=== PATIENT | female | born 1990 | race Caucasian/White ===

== ENCOUNTER 2020-10-22 14:51 | Emergency (ER) | payer MEDICAID, SELFPAY ==
[2020-10-22 15:14] VITALS: BP 113/47; PULSE 80; RESP 17; TEMP 36.8; O2SAT 100; BMI 26.9
--- NOTE | 2020-10-22 15:44 | ED.EXTPRO ---
HPI - Extremity Problem General Chief complaint: Extremity Injury, Upper Stated complaint: R RING FINGER NAIL INJ Time Seen by Provider: 10/22/20 15:44 History of Present Illness HPI Narrative: Patient complains of right ring finger nail bent back, she has an acrylic nail and banged it against something and it bent the nail back partially avulsing the nail, no numbness no weakness no tingling Related Data Allergies Allergy/AdvReac Type Severity Reaction Status Date / Time acetaminophen [From VICODIN] Allergy Mild NAUSEA Verified 10/22/20 17:27 hydrocodone [From VICODIN] Allergy Unknown NAUSEA/BODY Verified 10/22/20 17:27 SWELLING From VICODIN Allergy Mild NAUSEA Uncoded 03/24/20 15:59 Review of Systems Review of Systems: Positive for right fingernail avulsion No fever no chills no numbness no weakness no tingling no other injury PMFSH Past Medical History Source: nursing notes reviewed Medical History (Updated 10/22/20 @ 17:47 by BEV Hernadez) No known health problems Social History Social History Advance Directives: No Advance Directives Information Provided: No Physical Exam Vital Signs: Vital Signs: Last Vital Signs Temp 98.3 F 10/22/20 15:14 Pulse 80 10/22/20 15:14 Resp 17 10/22/20 15:14 BP 113/47 L 10/22/20 15:14 Pulse Ox 100 10/22/20 15:14 Body Mass Index 26.9 Patient is A&O x3 comfortable relaxed cooperative Neck is supple Respiratory no distress Right 4th finger has the fingernail loose at the nail base, there is no swelling or redness no warmth, neurovascular is intact Skin no rash Neuro no focal motor or sensory deficits Course Course Course Narrative: Right 4th finger was numbed with a digital block using 8 cc of 1% lidocaine The nail was lifted down to the base and trimmed below the acrylic nail with the nail plate remaining No bleeding or problem and a Band-Aid was applied Discharge Plan Discharge Clinical Impression: Avulsion of fingernail Qualifiers: Encounter type: initial encounter Qualified Code(s): S61.309A - Unspecified open wound of unspecified finger with damage to nail, initial encounter Patient Disposition: Home, Self-Care Additional Instructions: I removed the section of loose fingernail It should grow back over weeks to a couple of months No sign of infection Cover with Band-Aid and it should not create many problems Return any concerns
[2020-10-22] MEDS: Lidocaine HCl 1 % MPF 5 ML VIAL SUBCUT ×3 (16:37→17:27)
--- NOTE | 2020-10-22 17:29 | PC.NURSE ---
PT EVALED BY BEV MURPHY. DIGITAL BLOCK DONE. PT REPORTS PAIN STILL. 2ND LIDOCAINE SCANNED. PT HAS PARTIALLY TORN OFF ACRYLIC NAIL ON RIGHT 4TH FINGER. PT WAITING FOR 2ND DIGITAL BLOCK.
== END 2020-10-22 17:52 | disposition home or self-care (01) ==
PROVIDERS: Emergency Provider Emergency Medicine; PCP Internal Medicine Geriatric Medicine
DX: S61.304A Unspecified open wound of right ring finger with damage to nail, initial encounter (principal); S69.91XA Unspecified injury of right wrist, hand and finger(s), initial encounter; M79.641 Pain in right hand; Y33.XXXA Other specified events, undetermined intent, initial encounter; Y93.9 Activity, unspecified; Y92.9 Unspecified place or not applicable; Y99.9 Unspecified external cause status
CPT/HCPCS: 11750; 11765; 99283; 99284

== ENCOUNTER 2021-07-16 13:21 | Emergency (ER) | payer MEDICAID, SELFPAY ==
--- NOTE | ~2021-07-16 | XR_ITS ---
EXAMINATION: LUMBAR SPINE, SACRUM AND COCCYX, AP PELVIS AND RIGHT HIP AND RIGHT FEMUR CLINICAL INFORMATION: Fall, pain COMPARISON: None TECHNIQUE: 2 views lumbar spine, 3 views sacrum, one view AP pelvis and right hip and 2 views right femur. FINDINGS: LUMBAR SPINE: There is normal lumbar lordosis. The vertebral heights, alignment and disc heights are normal. No visible acute fracture, dislocation or subluxation seen. SACRUM AND/OR COCCYX: There is no visible fracture or dislocation involving sacrum or the coccyx. The SI joints are symmetrical and normal. The soft tissues are normal. AP PELVIS AND RIGHT HIP: There is normal symmetry of bilateral hip joints and SI joints. There is no visible acute fracture or dislocation involving the right hip. The soft tissues are normal. Right femur: There is no visible fracture or bony abnormality. The soft tissues are normal. XR/XR sacrum coccyx min 2V IMPRESSION: Unremarkable lumbar, sacrum and coccyx spine exam. Unremarkable AP pelvis and right hip. Unremarkable right femur exam..
--- NOTE | ~2021-07-16 | XR_ITS ---
EXAMINATION: LUMBAR SPINE, SACRUM AND COCCYX, AP PELVIS AND RIGHT HIP AND RIGHT FEMUR CLINICAL INFORMATION: Fall, pain COMPARISON: None TECHNIQUE: 2 views lumbar spine, 3 views sacrum, one view AP pelvis and right hip and 2 views right femur. FINDINGS: LUMBAR SPINE: There is normal lumbar lordosis. The vertebral heights, alignment and disc heights are normal. No visible acute fracture, dislocation or subluxation seen. SACRUM AND/OR COCCYX: There is no visible fracture or dislocation involving sacrum or the coccyx. The SI joints are symmetrical and normal. The soft tissues are normal. AP PELVIS AND RIGHT HIP: There is normal symmetry of bilateral hip joints and SI joints. There is no visible acute fracture or dislocation involving the right hip. The soft tissues are normal. Right femur: There is no visible fracture or bony abnormality. The soft tissues are normal. XR/XR femur RT 2V IMPRESSION: Unremarkable lumbar, sacrum and coccyx spine exam. Unremarkable AP pelvis and right hip. Unremarkable right femur exam..
--- NOTE | ~2021-07-16 | XR_ITS ---
EXAMINATION: LUMBAR SPINE, SACRUM AND COCCYX, AP PELVIS AND RIGHT HIP AND RIGHT FEMUR CLINICAL INFORMATION: Fall, pain COMPARISON: None TECHNIQUE: 2 views lumbar spine, 3 views sacrum, one view AP pelvis and right hip and 2 views right femur. FINDINGS: LUMBAR SPINE: There is normal lumbar lordosis. The vertebral heights, alignment and disc heights are normal. No visible acute fracture, dislocation or subluxation seen. SACRUM AND/OR COCCYX: There is no visible fracture or dislocation involving sacrum or the coccyx. The SI joints are symmetrical and normal. The soft tissues are normal. AP PELVIS AND RIGHT HIP: There is normal symmetry of bilateral hip joints and SI joints. There is no visible acute fracture or dislocation involving the right hip. The soft tissues are normal. Right femur: There is no visible fracture or bony abnormality. The soft tissues are normal. XR/XR hip RT w PEL1V IMPRESSION: Unremarkable lumbar, sacrum and coccyx spine exam. Unremarkable AP pelvis and right hip. Unremarkable right femur exam..
--- NOTE | ~2021-07-16 | XR_ITS ---
EXAMINATION: LUMBAR SPINE, SACRUM AND COCCYX, AP PELVIS AND RIGHT HIP AND RIGHT FEMUR CLINICAL INFORMATION: Fall, pain COMPARISON: None TECHNIQUE: 2 views lumbar spine, 3 views sacrum, one view AP pelvis and right hip and 2 views right femur. FINDINGS: LUMBAR SPINE: There is normal lumbar lordosis. The vertebral heights, alignment and disc heights are normal. No visible acute fracture, dislocation or subluxation seen. SACRUM AND/OR COCCYX: There is no visible fracture or dislocation involving sacrum or the coccyx. The SI joints are symmetrical and normal. The soft tissues are normal. AP PELVIS AND RIGHT HIP: There is normal symmetry of bilateral hip joints and SI joints. There is no visible acute fracture or dislocation involving the right hip. The soft tissues are normal. Right femur: There is no visible fracture or bony abnormality. The soft tissues are normal. XR/XR lumbar spine 2-3V IMPRESSION: Unremarkable lumbar, sacrum and coccyx spine exam. Unremarkable AP pelvis and right hip. Unremarkable right femur exam..
[2021-07-16 13:29] VITALS: BP 105/45; BP 138/86; PULSE 103; PULSE 80; RESP 20; TEMP 35.7; O2SAT 100; O2SAT 99; BMI 26.2
--- NOTE | 2021-07-16 15:01 | ED.FALL ---
HPI - Fall General Chief Complaint: Fall Stated Complaint: fall Time Seen by Provider: 07/16/21 14:23 Source: patient Mode of arrival: ambulatory Limitations: no limitations History of Present Illness HPI Narrative: 30-year-old female here with reports of slip and fall on stairs just prior to arrival. Patient tells me that she fell down approximately 4 stairs landing on her buttocks and right upper leg. She did hit her head but there was no loss of consciousness. She denies any anticoagulation use. No headache, nausea, vomiting, vision changes, neck pain. Patient is here complaining of low back pain and right hip and leg pain. Related Data Previous Rx's Medication Instructions Recorded cyclobenzaprine 10 mg tablet 10 mg PO TID PRN #10 tab 07/16/21 ibuprofen 600 mg tablet 600 mg PO Q8H PRN #20 tab 07/16/21 Allergies Allergy/AdvReac Type Severity Reaction Status Date / Time acetaminophen [From VICODIN] Allergy Mild NAUSEA Verified 10/22/20 17:27 hydrocodone [From VICODIN] Allergy Unknown NAUSEA/BODY Verified 10/22/20 17:27 SWELLING From VICODIN Allergy Mild NAUSEA Uncoded 03/24/20 15:59 Review of Systems Review of Systems: Yes all other systems are reviewed and are negative Constitutional: Constitutional: Reports no additional constitutional complaints, Denies body ache(s), Denies chills, Denies fever(s), Denies headache(s) and Denies weakness Eyes: Eyes: Reports no additional eye complaints and Denies change in vision ENT: Reports system reviewed and no additional complaints, except as documented, Denies dizziness, Denies headache(s), Denies nasal congestion, Denies nasal discharge and Denies neck pain Cardiovascular: Cardiovascular: Reports no additional cardiovascular complaints, Denies chest pain, Denies leg edema and Denies dyspnea Respiratory: Respiratory: Reports no additional respiratory complaints, Denies cough and Denies dyspnea Gastrointestinal: Gastrointestinal: Reports no additional gastrointestinal complaints, Denies abdominal pain, Denies diarrhea, Denies nausea and Denies vomiting Genitourinary: Genitourinary: Reports no additional female genitourinary complaints and Denies urinary incontinence Musculoskeletal: Musculoskeletal: Reports no additional musculoskeletal complaints, Reports back pain, Reports arthralgias, Denies joint swelling, Denies neck pain, Denies numbness and Denies tingling Integumentary/Breasts: Skin/Breast: Reports system reviewed and no additional complaints, except as docu and Denies rash Neurologic: Reports system reviewed and no additional complaints, except as documented, Denies Abnormal speech present, Denies dizziness, Denies headache(s), Denies numbness, Denies tingling and Denies weakness PMFSH Past Medical History Attestation statement: The following information was validated with the patient. Source: old records reviewed and nursing notes reviewed Medical History No known health problems Social History Social History Advance Directives: No Advance Directives Information Provided: Yes Physical Exam Vital Signs: Vital Signs: Last Vital Signs Temp 96.2 F L 07/16/21 13:29 Pulse 80 07/16/21 13:29 Resp 20 07/16/21 13:29 BP 105/45 L 07/16/21 13:29 Pulse Ox 99 07/16/21 13:29 BMI result Body Mass Index 26.2 Const: General: cooperative, healthy appearing, comfortable and no acute distress Orientation/consciousness: patient oriented x3 Limitations: no limitations HENMT: Head: Yes normal to inspection Ears: hearing grossly normal bilaterally General nose exam: Normal external nose present Face and sinus: Yes normal facial exam Mouth: Normal oral and palatal mucosa present Throat: Yes posterior oropharynx normal Eyes: General: appearance normal, both eyes and all related structures Pupils: Equal, round and reactive pupils present Neck: Neck: Yes normal visual inspection Chest: Chest palpation & inspection: normal inspection of the chest Resp: Effort & Inspection: normal respiratory effort Auscultation: clear to auscultation bilaterally Cardio: Rate: regular rate Rhythm: regular rhythm Peripheral pulses: Peripheral pulses 2+ throughout GI: Inspection: Yes normal to inspection Palpation (GI): Soft to palpation and nontender Auscultation: normal bowel sounds Back/Spine/Pelvis: Other: There is tenderness to the lumbar spine and coccyx with no step-offs, deformities or ecchymosis. Thoracic/Lumbar Spine: thoracic and lumbar spine normal to inspection Skin: General skin exam: no rashes or lesions noted Neuro: General: patient oriented x3, no focal motor deficits and normal sensation to monofilament Cranial nerves: Yes CN's II-XII intact bilaterally, Yes Equal, round and reactive pupils present, Yes Bilaterally intact EOM present, Yes Normal facial strength present and Yes Midline tongue present Cognition (Neuro): normal cognition Speech: No Abnormal speech present Gait exam (Neuro): Normal gait present Motor exam (neuro): 5/5 motor strength present throughout Sensory Exam: Normal double simultaneous stimulation for sensation Extrem: Other: Tenderness over the right lateral hip and right outer thigh with no ecchymosis, deformity or swelling noted. Full range of motion of affected joint. Neurovascularly intact distally General: Yes normal to inspection Course Course Course Narrative: 30-year-old female here with reports of low back pain, right hip and leg pain after a slip and fall which occurred just prior to arrival. There was a head strike no loss of conscious. No neurological complaints or deficits. Will check x-rays 1530-x-ray show no bony abnormality. Likely contusion. Reviewed worrisome signs and symptoms of when to return to the emergency department. Comfortable discharge home. MDM - Fall Medical Records Attestation: I reviewed the patient's medical records. Lab Data Attestation: I reviewed the patient's lab results. Imaging Data lumbar/sacrum/hip/pelvis: Attestation: I personally reviewed and interpreted this imaging study as follows: Radiologist's impression: FINDINGS: LUMBAR SPINE: There is normal lumbar lordosis. The vertebral heights, alignment and disc heights are normal. No visible acute fracture, dislocation or subluxation seen. SACRUM AND/OR COCCYX: There is no visible fracture or dislocation involving sacrum or the coccyx. The SI joints are symmetrical and normal. The soft tissues are normal. AP PELVIS AND RIGHT HIP: There is normal symmetry of bilateral hip joints and SI joints. There is no visible acute fracture or dislocation involving the right hip. The soft tissues are normal. Right femur: There is no visible fracture or bony abnormality. The soft tissues are normal. XR/XR femur RT 2V IMPRESSION: Unremarkable lumbar, sacrum and coccyx spine exam. ? Unremarkable AP pelvis and right hip. ? Unremarkable right femur exam..? Discharge Plan Discharge Clinical Impression: Lumbar contusion, Contusion of leg, right, Contusion of hip, right Patient Disposition: Home, Self-Care Instructions: Back Pain (ED), Hip Contusion (ED) Additional Instructions: Heat or ice Gentle stretching Motrin or Tylenol for pain or fever Prescriptions: New cyclobenzaprine 10 mg tablet 10 mg PO TID PRN (Reason: muscle spasm) Qty: 10 RF: 0 ibuprofen 600 mg tablet 600 mg PO Q8H PRN (Reason: pain) Qty: 20 RF: 0 Referrals: Physician,Unknown J [Primary Care Provider] - 2 days Interventions: ED Discharge Assessment Last Done: 07/16/21 15:56 Discharge Date/Time: 07/16/21 15:57
== END 2021-07-16 15:57 | disposition home or self-care (01) ==
PROVIDERS: Emergency Provider Internal Medicine
DX: S30.0XXA Contusion of lower back and pelvis, initial encounter (principal); S80.11XA Contusion of right lower leg, initial encounter; S70.01XA Contusion of right hip, initial encounter; M79.604 Pain in right leg; W10.9XXA Fall (on) (from) unspecified stairs and steps, initial encounter; Y93.9 Activity, unspecified; Y92.9 Unspecified place or not applicable; Y99.9 Unspecified external cause status; Z79.899 Other long term (current) drug therapy
CPT/HCPCS: 72100; 72220; 73502; 73552; 99283

== ENCOUNTER 2024-03-22 13:37 | Emergency (ER) | payer MEDICAID, SELFPAY ==
--- NOTE | ~2024-03-22 | CT_ITS ---
EXAMINATION: CT ABDOMEN AND PELVIS WITHOUT CONTRAST CLINICAL INFORMATION: Severe left flank pain COMPARISON: CT abdomen 04/29/2015 TECHNIQUE: Multidetector volumetric imaging was performed from the superior aspect of the liver through the pubic symphysis. Sagittal and coronal reformatted images were obtained on the technologist's workstation. This CT examination was performed using dose optimization techniques as appropriate, variously including the following: *Automated exposure control *Adjustment of mA and/or kV according to patient size (this includes techniques or standardized protocols for targeted exams where dose is matched to indication/reason for exam; i.e. extremities or head) *Use of iterative reconstruction technique DLP: 542 mGy-cm FINDINGS: LUNG BASES: The visualized lung bases are unremarkable. LIVER, GALLBLADDER, AND BILIARY TREE: Low-attenuation of the liver with respect to the spleen suggestive of hepatic steatosis.. No focal hepatic lesion or biliary ductal dilatation is present. The gallbladder is unremarkable with no evidence of radiopaque gallstones, gallbladder wall thickening, or obvious pericholecystic inflammatory changes. PANCREAS: Unremarkable. SPLEEN: Unremarkable. ADRENAL GLANDS: Unremarkable. KIDNEYS AND URETERS: Mild left hydroureteronephrosis, with a 3 mm calculus in the distal ureter. Multiple nonobstructing left renal calculi. Small right renal superior pole nonobstructing calculus. No right hydroureteronephrosis. BLADDER: Unremarkable. GASTROINTESTINAL TRACT: The small and large bowel are unremarkable. The appendix is unremarkable. Stomach and duodenum appear within normal limits. No free fluid. No free air. ABDOMINAL WALL: No significant hernia is appreciated. LYMPH NODES: No pathologically enlarged lymph nodes are seen. VASCULAR: Normal caliber aorta. PELVIC VISCERA: Unremarkable. OSSEOUS STRUCTURES: No acute or suspicious osseous abnormality. CT/CT abdomen pelvis wo IV con IMPRESSION: 1. Mild left hydroureteronephrosis, with a 3 mm calculus in the distal left ureter. Nonobstructing bilateral renal calculi are otherwise seen. 2. Hepatic steatosis. Fleischner guidelines were followed. Electronically signed by: Shai Lopez MD 03/22/2024 03:40 PM EDT
[2024-03-22 13:48] VITALS: BP 136/90; PULSE 64; RESP 20; TEMP 36.8; O2SAT 99; BMI 29.8
--- NOTE | 2024-03-22 14:02 | PC.NURSE ---
patient arrives via EMS from home with cc of left flank pain radiating to the front that started about 45min [employer], patient visibly uncomfortable upon exam, endorsing 10/10 pain that comes in waves, states she is having difficulty urinating but denies burning, was able to provide urine sample for this RN. patient denies any fevers at home but states the pain is so bad that she has been having nausea, provided with emesis bag. patient VSS at this time, PIV placed in RAC by this RN, blood work and urine sent to lab. abdomen soft and tender to palpation to left side, patient also endorsing 10/10 pain to palpation to left lower back. provided patient with heating pad, tearful upon assessment. awaiting provider radhaal
[2024-03-22 14:03] LABS: MANUAL DIFF FLAG NO
[2024-03-22 14:04] LABS: Basophils Percent Auto 0.5 % (0-2); Eosinophils Absolute Auto 0.2 X10*3/uL (0.0-0.4); Eosinophils Percent Auto 2.9 % (0-4); Hematocrit 40.9 % (37.0-47.0); Hemoglobin 14.2 g/dl (12.0-16.0); Imm Gran Abs Auto 0.03 X10*3/uL (0.00-0.03); Imm Gran Pct Auto 0.4 % (0.0-0.4); Lymphocytes Absolute Auto 2.4 X10*3/uL (1.2-4.9); Lymphocytes Percent Auto 28.5 % (20-40); Mean Corpuscular HGB Conc 34.7 g/dl (31.0-35.0); Mean Corpuscular Hemoglobin 31.6 pg (27.0-33.0); Mean Corpuscular Volume 91.1 fL (80.0-98.0); Mean Platelet Volume 10.5 fL (9.4-12.3); Monocytes Absolute Auto 0.5 X10*3/uL (0.1-1.2); Monocytes Percent Auto 6.4 % (2-11); Neutrophils Absolute Auto 5.2 x10*3/uL (2.0-8.3); Neutrophils Percent Auto 61.3 % (45-73); Platelet Count 245 X10*3/uL (160-400); Red Blood Count 4.49 X10*6/uL (4.20-5.50); Red Cell Distribution Width 13.9 % (11.0-16.0); White Blood Count 8.4 X10*3/uL (4.8-10.8)
[2024-03-22 14:04] LABS: Appearance Urine Clear; Color Urine Yellow; Glucose Urine UA Negative (Negative); Leukocyte Esterase Urine Negative (Negative); Nitrite Urine Negative (Negative); PH 5.5 (5.0-9.0); Specific Gravity - Urine 1.015 (1.005-1.025); UMIC TRIGGER UACC YES; Urine Blood Small (1+) (Negative); Urine Ketones Negative (Negative); Urine Protein Negative (Neg-Trace)
--- NOTE | 2024-03-22 14:09 | ED.ABDPAIN ---
HPI - Abdominal Pain General Chief Complaint: Abdominal Pain Stated Complaint: BILATERAL FLANK PAIN Time Seen by Provider: 03/22/24 14:08 Source: patient and EMS Mode of arrival: EMS Limitations: no limitations History of Present Illness ED Provider: Ethan Marie PA-C HPI narrative: 33-year-old female presents the ER for evaluation of acute onset severe left flank pain and difficulty urinating that started this morning. Patient states she went to bed last night in her usual state of health. This morning she woke up and had 2 episodes of diarrhea, did not think much about it and then developed the severe pain shortly after. She reports sensation of having to urinate but unable to do so. She reports 10/10 pain in the left flank that was worse than childbirth. She called 911 and waited outside for the ambulance. She denies any fevers or chills. No vaginal bleeding or discharge, she denies chance of . She denies chest pain or shortness of breath MD elicited complaint: flank pain Pertinent past history: none Onset (ago): hour(s) Pain Consistency: constant Location: L flank Severity: severe Pain scale (0-10): 10 Quality: stabbing Radiation: LLQ Migration to: no migration Exacerbating factors: nothing Relieving factors: nothing Associated symptoms: nausea and diarrhea Related Data Previous Rx's ?Medication ?Instructions ?Recorded cyclobenzaprine 10 mg tablet 10 mg PO TID PRN muscle spasm #10 07/16/21 tabs ibuprofen 600 mg tablet 600 mg PO Q8H PRN pain #20 tabs 07/16/21 naproxen 500 mg tablet 500 mg PO BID PRN pain #20 tabs 03/22/24 ondansetron 4 mg disintegrating 4 mg PO Q8H PRN nausea and 03/22/24 tablet vomiting #7 tabs oxycodone 5 mg tablet 5 mg PO Q8H PRN severe pain (scale 03/22/24 score 7-10) #7 tabs tamsulosin 0.4 mg capsule (Flomax) 0.4 mg PO DAILY #14 caps 03/22/24 Allergies Allergy/AdvReac Type Severity Reaction Status Date / Time acetaminophen [From VICODIN] Allergy Mild NAUSEA Verified 03/22/24 13:49 hydrocodone [From VICODIN] Allergy Unknown NAUSEA/BODY Verified 03/22/24 13:49 SWELLING From VICODIN Allergy Mild NAUSEA Uncoded 03/22/24 13:49 Review of Systems Review of Systems Yes all other systems are reviewed and are negative [facility] Past Medical History Medical History No known health problems Social History Social History Smoked in Last 30 Days: No Use of substances other than those prescribed or required for medical reasons: No Advance Directives: No Advance Directives Information Provided: No Do you have a plan to hurt others: No Plan Patient : No Physical Exam ED Vital Signs: Vital Signs - 24 hr 03/22/24 13:48 03/22/24 14:18 Temperature 98.2 F Pulse Rate 64 57 Respiratory Rate 20 18 Blood Pressure 136/90 H 111/47 L Pulse Oximetry 99 100 Oxygen Delivery Method Room Air Room Air BMI result Body Mass Index 29.8 Appearance: Alert. Oriented X3. In severe pain, restless and uncomfortable HEENT: normal external inspection Neck: Normal inspection. Neck supple. CVS: Normal heart rate and rhythm. Pulses normal. Respiratory: No respiratory distress. Breath sounds normal. Abdomen: Soft left lower quadrant tenderness, left-sided CVA tenderness. +BS x4 Skin: Skin warm and dry. Normal skin color. Normal skin turgor. No rashes. Extremities: No lower extremity edema. No joint swelling. Neuro/psych: Oriented X 3. No motor deficit. No sensory deficit. CN II-XII intact. Normal speech and cognition. Medical Decision Making Medical Decision Making MDM Narrative: 33-year-old otherwise healthy female presents to the ER for evaluation of acute onset of left flank pain after having 2 episodes of diarrhea today. She also reports difficulty urinating, denies any blood in her urine. No fevers or chills. On arrival to the ER she is extremely uncomfortable, writhing in pain. High clinical suspicion for kidney stone. No history of the same. IV was established and she was given IV morphine and IV Toradol long IV fluids. Her urinalysis has a small amount of blood, no evidence of infection. Her renal function is normal. CT scan of her abdomen was performed showing a distal 3mm stone. pain much improved after IV morphine and Toradol. Shortly after pain started to ?creep back? so she was given oral medications. This further improved her pain. She was re-evaluated once again and felt much better and would like to be discharged home. patient counseled on dx and tx along with return precautions. Patient is stable for discharge home with pain medications and symptomatic care. Encourage Urology follow-up. Stable for DC home Differential Diagnosis Differential Diagnoses: The differential diagnosis associated with the presentation includes Kidney stone, pyelonephritis, UTI, diverticulitis, low suspicion for splenic injury Admission/Observation Consideration of admission/observation: Escalation of care including admission/observation considered Improved with treatment Lab Data MDM Lab Attestation statement: I reviewed the patient's lab results. No leukocytosis, mild hyperglycemia, no anion gap, no anemia, normal renal function 03/22/24 13:58 03/22/24 13:58 Labs: Lab Results 03/22/24 03/22/24 Range/Units 13:54 13:58 WBC 8.4 (4.8-10.8) X10*3/uL RBC 4.49 (4.20-5.50) X10*6/uL Hgb 14.2 (12.0-16.0) g/dl Hct 40.9 (37.0-47.0) % MCV 91.1 (80.0-98.0) fL MCH 31.6 (27.0-33.0) pg MCHC 34.7 (31.0-35.0) g/dl RDW 13.9 (11.0-16.0) % Plt Count 245 (160-400) X10*3/uL MPV 10.5 (9.4-12.3) fL Immature Gran % (Auto) 0.4 (0.0-0.4) % Neut % (Auto) 61.3 (45-73) % Lymph % (Auto) 28.5 (20-40) % [place] % (Auto) 6.4 (2-11) % Eos % (Auto) 2.9 (0-4) % Baso % (Auto) 0.5 (0-2) % Lymph # (Auto) 2.4 (1.2-4.9) X10*3/uL [place] # (Auto) 0.5 (0.1-1.2) X10*3/uL Eos # (Auto) 0.2 (0.0-0.4) X10*3/uL Baso # (Auto) 0.0 (0.0-0.2) X10*3/uL Abs Immat Gran (auto) 0.03 (0.00-0.03) X10*3/uL Absolute Neuts (auto) 5.2 (2.0-8.3) x10*3/uL Absolute Nucleated RBC 0.000 (0.0-0.012) X10*3/uL Nucleated RBC % (auto) 0.0 (0.0-0.2) /100WBC Sodium 139 (135-145) mmol/L Potassium 3.5 (3.3-5.1) mmol/L Chloride 109 H (96-108) mmol/L Carbon Dioxide 18 L (22-29) mmol/L Anion Gap 16 (12-20) BUN 9 (9-16) mg/dL Creatinine 0.85 (0.5-1.4) mg/dL Estim Creat Clear Calc 88.5 Estimated GFR > 60 Random Glucose 125 H (60-115) mg/dL Calcium 9.6 (8.4-10.2) mg/dL Total Bilirubin 0.3 (0.0-1.0) mg/dL AST 25 (5-31) U/L ALT 34 H (0-31) U/L Alkaline Phosphatase 71 (39-117) U/L Total Protein 7.5 (6.5-8.0) g/dL Albumin 4.4 (3.5-5.0) g/dL Lipase 32 (8-78) U/L Beta HCG, Quant < 2 mIU/mL Urine Color Yellow Urine Appearance Clear Urine pH 5.5 (5.0-9.0) Ur Specific [place] 1.015 (1.005-1.025) Urine Protein Negative (Neg-Trace) mg/dL Urine Glucose (UA) Negative (Negative) mg/dL Urine Ketones Negative (Negative) mg/dL Urine Blood Small (1+) H (Negative) Urine Nitrite Negative (Negative) Ur Leukocyte Esterase Negative (Negative) Urine RBC 0-2 (0-2) /HPF Urine WBC 0-5 (0-5) /HPF Ur Squamous Epith Cells 6-10 (0-2) /HPF Urine Bacteria 1+ (None Seen) Hyaline Casts 0-2 (0-2) /LPF Independent Interpretation I performed an independent interpretation of an: CT Scan Interpretation: 3mm distal ureteral stone, no significant hydro, agrees radiology read Radiology Impression Discussion of test interpretation with radiology: I have reviewed the radiologist's reading. Radiologist Impression: CT/CT abdomen pelvis wo IV con IMPRESSION: 1. Mild left hydroureteronephrosis, with a 3 mm calculus in the distal left ureter. Nonobstructing bilateral renal calculi are otherwise seen. 2. Hepatic steatosis Independent Historian Clinical information obtained from an independent historian. History obtained from or confirmed by: EMS External Record Review External record reviewed: Outpatient record, Prior outpatient labs and Prior outpatient radiology Tests considered The following testing was considered but not selected: Renal ultrasound considered Prescription Management I considered prescription management with: Pain Medication and Antibiotic Medications Administered Discontinued Medications Generic Name Dose Route Start Last Admin Trade Name Freq PRN Reason Stop Dose Admin Sodium Chloride 1,000 mls @ 999 mls/hr 03/22/24 14:15 03/22/24 15:28 Ns IVCONT 03/22/24 15:15 Infused .Q1H1M ROSALINA Infusion Ketorolac Tromethamine 30 mg 03/22/24 14:09 03/22/24 14:13 Ketorolac Tromethamine 30 Mg/Ml Vial IVPUSH 03/22/24 14:10 30 mg ONCE ONE Administration Morphine Sulfate 4 mg 03/22/24 14:09 03/22/24 14:13 Morphine Sulfate 4 Mg/Ml Cartridge IVPUSH 03/22/24 14:10 4 mg ONCE ONE Administration Protocol Ondansetron HCl 4 mg 03/22/24 15:50 03/22/24 16:01 Ondansetron Odt 4 Mg Tab.Rapdis TRANSLINGU 03/22/24 15:51 4 mg ONCE ONE Administration Oxycodone HCl 5 mg 03/22/24 15:50 03/22/24 16:00 Oxycodone Hcl Immed Release 5 Mg Tablet PO 03/22/24 15:51 5 mg ONCE ONE Administration Critical Care Time Critical Care Time Critical Care Time: Yes Total Critical Care Time: 32 Attestation: I have personally provided critical care time exclusive of time spent on separately billable procedures. Time includes review of lab data, radiology results, bedside re-evaluation after administration of IV narcotic, and monitoring for potential decompensation. Intervention performed as documented. Discharge Plan Discharge Clinical Impression: Kidney stone on left side Patient Disposition: Home, Self-Care Instructions: Kidney Stones (ED), Low Oxalate Diet (ED) Additional Instructions: Your lab workup today was unremarkable. Your urine test was negative for and infection, did have a trace amount of blood that is commonly seen with kidney stones. Take the prescribed medications to help pass the stone. Recommend following up with Urology, call for an appointment. Drink plenty of fluids. If you develop new or worsening symptoms call 911 or come back to the ER for further evaluation. CT/CT abdomen pelvis wo IV con IMPRESSION: 1. Mild left hydroureteronephrosis, with a 3 mm calculus in the distal left ureter. Nonobstructing bilateral renal calculi are otherwise seen. 2. Hepatic steatosis. Prescriptions: New naproxen 500 mg tablet 500 mg PO BID PRN (Reason: pain) Qty: 20 0RF tamsulosin [Flomax] 0.4 mg capsule 0.4 mg PO DAILY Qty: 14 0RF oxycodone 5 mg tablet 5 mg PO Q8H PRN (Reason: severe pain (scale score 7-10)) Qty: 7 0RF Rx Instructions: Partial Fill upon patient request. ondansetron 4 mg tablet,disintegrating 4 mg PO Q8H PRN (Reason: nausea and vomiting) Qty: 7 0RF No Action cyclobenzaprine 10 mg tablet 10 mg PO TID PRN (Reason: muscle spasm) Qty: 10 0RF ibuprofen 600 mg tablet 600 mg PO Q8H PRN (Reason: pain) Qty: 20 0RF Referrals: [facility] [Provider Group] (3mm distal ureteral stone) [place] [Primary Care Provider] - Print Language: Austrian
[2024-03-22] MEDS: Ketorolac Tromethamine 30 MG/ML VIAL IVPUSH (14:13)
[2024-03-22] MEDS: Morphine Sulfate 4 MG/ML CARTRIDGE IVPUSH (14:13)
[2024-03-22 14:16] LABS: Alanine Aminotransferase 34 U/L (0-31); Albumin Level 4.4 g/dL (3.5-5.0); Alkaline Phosphatase 71 U/L (39-117); Anion Gap 16 (12-20); Aspartate Amino Transferase 25 U/L (5-31); Bilirubin Total 0.3 mg/dL (0.0-1.0); Blood Urea Nitrogen 9 mg/dL (9-16); Calcium 9.6 mg/dL (8.4-10.2); Carbon Dioxide 18 mmol/L (22-29); Chloride 109 mmol/L (96-108); Creatinine Clr Calc Pharmacy 88.5; Estimated Glomerular Filt Rate > 60; Glucose Random 125 mg/dL (60-115); Lipase 32 U/L (8-78); Potassium 3.5 mmol/L (3.3-5.1); Sodium 139 mmol/L (135-145); Total Protein 7.5 g/dL (6.5-8.0)
[2024-03-22 14:18] VITALS: BP 111/47; PULSE 57; RESP 18; O2SAT 100
[2024-03-22] MEDS: 0.9 % Sodium Chloride 1,000 ML 999 ML IVCONT (14:18)
[2024-03-22 14:27] LABS: Bacteria Urine 1+ (None Seen); Hyaline Casts Urine 0-2 /LPF (0-2); RBC Urine 0-2 /HPF (0-2); WBC Urine 0-5 /HPF (0-5)
[2024-03-22 14:47] LABS: HCG Quantitative < 2 mIU/mL
[2024-03-22] MEDS: oxyCODONE HCl Immed Release 5 MG TABLET PO (16:00)
[2024-03-22] MEDS: Ondansetron ODT 4 MG TAB.RAPDIS TRANSLINGU (16:01)
[2024-03-22 16:24] VITALS: BP 106/46; PULSE 63; RESP 18; TEMP 36.6; O2SAT 100
== END 2024-03-22 16:28 | disposition home or self-care (01) ==
PROVIDERS: Physician Assistant; Emergency Provider Emergency Medicine
DX: N20.0 Calculus of kidney (principal); R33.9 Retention of urine, unspecified; R19.7 Diarrhea, unspecified; R10.32 Left lower quadrant pain; R11.0 Nausea; Z79.899 Other long term (current) drug therapy
CPT/HCPCS: 36415; 74176; 80053; 81001; 83690; 84702; 85025; 96361; 96374; 96375; 99284; J1885; J2270